=== PATIENT | female | born 1995 | race Caucasian/White ===

== ENCOUNTER → 2017-07-07 08:14 | Outpatient (CLI) | payer BC, SELFPAY | PROVIDERS: Nurse Practitioner Women's Health; Family Provider Family Medicine; PCP Family Medicine; Visit Provider Obstetrics & Gynecology | DX: Z83.2 Family history of diseases of the blood and blood-forming organs and certain disorders involving the immune mechanism (principal); Z82.49 Family history of ischemic heart disease and other diseases of the circulatory system | CPT/HCPCS: 36415; 81241 ==

== ENCOUNTER → 2017-08-22 08:03 | Outpatient (CLI) | payer BC, SELFPAY ==
--- NOTE | 2017-08-22 08:08 | US_ITS ---
STUDY: ULTRASOUND BREAST - RIGHT REASON FOR EXAM: Female, 21 years old. Palpable lump in the right axillary region. TECHNIQUE: Axial and longitudinal images of the RIGHT breast were performed with a high resolution ultrasound transducer. COMPARISON: None. FINDINGS: RIGHT Breast: The right axillary region was examined by ultrasound. Normal tissue is seen. 2 small benign-appearing lymph nodes are present. The larger measures 1.3 cm x 1.3 cm x 0.4 cm. US/Breast Limited Unilateral IMPRESSION: 2 small benign-appearing right axillary lymph nodes. ASSESSMENT CATEGORY: BIRADS Category 2: Benign. A letter regarding these results will be sent to the patient by the facility within 30 days. Electronically Signed: Miguel Ángel Shook MD at 12:16 EDT Tel [phone], Service support ,
== END ==
PROVIDERS: Family Provider Family Medicine; PCP Family Medicine; Visit Provider Surgery
DX: R22.31 Localized swelling, mass and lump, right upper limb (principal)
CPT/HCPCS: 76642

== ENCOUNTER → 2018-06-08 15:52 | Outpatient (CLI) | payer BC, SELFPAY ==
[2018-06-08 11:57] VITALS: BMI 30.7
[2018-06-08 19:05] LABS: Chlamydia Trachomatis by PCR Negative (Negative); Neisserai gonorrhoeae by PCR Negative (Negative); Probe Check PASS; Sample Adequacy Control PASS; Specimen Processing Control PASS
== END ==
PROVIDERS: Family Provider Family Medicine; PCP Family Medicine; Referring Provider Nurse Practitioner Women's Health; Visit Provider Nurse Practitioner Women's Health
DX: Z11.3 Encounter for screening for infections with a predominantly sexual mode of transmission (principal); N89.8 Other specified noninflammatory disorders of vagina
CPT/HCPCS: 87070; 87205; 87491; 87591

== ENCOUNTER 2018-06-11 06:42 | Day surgery (SDC) | payer BC, SELFPAY ==
[2018-04-17 09:18] VITALS: BMI 30.7
[2018-06-08 11:57] VITALS: BMI 30.7
--- NOTE | 2018-06-10 18:09 | PCM.HP.BLA ---
History and Physical Date of Admission: 06/11/18 HISTORY OF PRESENT ILLNESS 22 year old woman presents with a soft tissue mass on her right posterior axillary area/lateral chest wall that has increased in size over the last several months. She denies any trauma. She denies any recent infection. She has no trouble with range of motion of her right shoulder. She had a soft tissue mass excised in this area in the past about 10 years ago. It was a lipoma at that time according to the patient. She had an Ultrasound done in 08/20 which showed benign fatty tissue and benign appearing lymph nodes. She presents at this time for further evaluation and treatment. PAST MEDICAL HISTORY Anxiety and depression Seasonal allergies ocp use PAST SURGICAL HISTORY bilateral foot surgery ALLERGIES No Known Allergies MEDICATIONS norethindrone 1 mg-ethinyl estradiol citalopram FAMILY HISTORY Grandmother - Cancer Grandfather - Myocardial infarction Grandmother - DVT Mother - DVT SOCIAL HISTORY Smoking Status: Never smoker alcohol intake: current details: social substance use type: does not use caffeine: Yes REVIEW OF SYSTEMS General - Denies fever, fatigue, and weight loss. Eyes - Denies cataracts and glaucoma. ENT - Denies nasal congestion and sore throat. Endocrine - Denies excessive thirst and urination. Skin - Denies skin cancer. Has enlarging recurrent soft tissue mass right posterior axillary area/lateral chest wall. Musculoskeletal - Denies joint pain, joint stiffness, weakness of muscles and joints, back pain, and arthritis. Neuro - Denies headaches. Cardiovascular - Denies chest pain, fatigue, and shortness of breath with exertion. Psych - Denies anxiety and depression. Respiratory - Denies chronic cough and shortness of breath. Gastrointestinal - Denies nausea, vomiting, diarrhea, and constipation. Hematologic - Denies abnormal bruising and bleeding. Genitourinary - Denies hematuria and urinary frequency. PHYSICAL EXAMINATION General - Alert and Oriented. HEENT - PERRL. EOMI. Throat is clear. No suspicious lesions noted. Neck - Supple and nontender. No cervical adenopathy. No suspicious lesions noted. Chest wall - On the right lateral chest wall by the posterior axillary area is a soft tissue mass that has been excised before. It is mobile. Nontender. Measures 6 cm. Lungs - Clear to auscultation. Heart - Regular rate and rhythm. Abdomen - Soft and nondistended. Extremities - FROM. No axillary adenopathy. Radial pulses are palpable. On the right posterior axillary area/lateral chest wall is a soft tissue mass. It is mobile. It measures 6 cm. Nontender. There is no evidence of infection. Neuro - CN II-XII grossly intact. Psych - Normal mood and affect. ASSESSMENT 6 cm recurrent soft tissue mass right posterior axillary area/lateral chest wall. PLAN Ultrasound reviewed. Recommend excision of this recurrent enlarging soft tissue mass right posterior axillary area/lateral chest wall and send it to Pathology for analysis to rule out carcinoma. May need a drain postoperatively. Surgery will be done under general anesthesia on an outpatient basis. Patient was informed of the risks and complications of the procedure including alternatives to surgery. These were discussed with the patient personally. Patient voices understanding and wishes to proceed. Some of the risks and complications were included in a form from the [employer] [employer].
[2018-06-11 07:06] VITALS: BP 110/70; PULSE 60; RESP 16; TEMP 36.9; O2SAT 100; BMI 31.6
[2018-06-11 07:21] LABS: Internal QC Validated? YES +Cl - CLEAR BKGD; Pregnancy, Urine Negative Negative
--- NOTE | 2018-06-11 08:00 | MASS_PTH ---
PATIENT: ALLA UPTON LOC: [facility] [place] U#:[id number] AGE/SX: 22/F ROOM: RE06/11/[address]: Dr. Elvis Vivar MD : 1995 BED: DIS: 06/11/2018 SPEC #: [id number] RECD: 06/11/18 10:28 STATUS: SARAH HERMAN #: [id number] KADEN: 06/11/18 08:[address]: Elvis Vivar DEPT: SURGICAL PATHOLOGY RECD BY: Blake Leo ENTERED: 06/11/18 11:39 SP TYPE: Mass OTHR DR: Dr. Gorge Enciso MD Tissues: Chest wall, NOS Procedures: Surgery Specimen Level III HEADER OPERATION: Excision soft tissue mass, posterior axillary / lateral chest PRE-OP DIAGNOSIS: Recurrent soft tissue mass right posterior axillary area / lateral chest wall TISSUE SUBMITTED: Recurrent soft tissue mass right posterior axillary area / lateral chest wall MICROSCOPIC DIAGNOSIS Recurrent soft tissue mass right posterior axillary area/lateral chest wall, excision: Mature adipose tissue, consistent with lipoma. SJ:erin 06/12/18 MICROSCOPIC DESCRIPTION Slides are reviewed. GROSS DESCRIPTION Received in fixative is one container labeled with the patient's name and designated recurrent soft tissue mass right posterior axillary area. The specimen consists of multiple irregular fragments of lyon-yellow fibrofatty tissue that in aggregate measure 11 x 8 x 1.7 cm. The largest fragment contains an ellipse of light lyon unremarkable skin measuring 4.5 x 1.5 cm. Loaf Counter sections are submitted in three cassettes. / AM:erin 06/11/18 TC:1 CPT: 47062
[2018-06-11] MEDS: Cefazolin 2 GM in 0.9% Normal Saline 100 ML IV (08:15)
[2018-06-11] MEDS: Mupirocin Ointment 22gm Tube 1 APPLIC (09:00)
--- NOTE | 2018-06-11 09:19 | PCM.IMDPSTOP ---
Immediate Post-Op Note Date of Procedure: 06/11/18 Primary Surgeon/Physician: Elvis Vivar MD communications scientist: Ryanne Irizarry. Pre-Operative Diagnosis: 6 cm recurrent soft tissue mass right posterior axillary area/lateral chest wall. Post-Operative Diagnosis: Same. Surgery/Procedure Performed:: Excision 6 cm recurrent soft tissue mass right posterior axillary area/lateral chest wall with 7 cm layered closure. Description of Surgical Findings:: 22 year old woman presents with a soft tissue mass on her right posterior axillary area/lateral chest wall that has increased in size over the last several months. She denies any trauma. She denies any recent infection. She has no trouble with range of motion of her right shoulder. She had a soft tissue mass excised in this area in the past about 10 years ago. It was a lipoma at that time according to the patient. She had an Ultrasound done in 08/20 which showed benign fatty tissue and benign appearing lymph nodes. Today the patient underwent excision 6 cm recurrent soft tissue mass right posterior axillary area/lateral chest wall with 7 cm layered closure. I used Olegario absorbable hemostat. Reference Number - [id number]. Lot Number - [id number]. Expiration - December 30, 2022. Estimated Blood Loss: 25 ml. Specimen's removed: Recurrent soft tissue mass right posterior axillary area/lateral chest wall to Pathology. Drains: Akin. Type of Anesthesia:: General - Admit VTE Documentation VTE Present on Admission: No VTE Mechan Device Prophylaxis: SCD's VTE Pharm Prophylaxis ordered?: No
--- NOTE | 2018-06-11 09:23 | OP.PN_ITS ---
Immediate Post-Op Note Date of Procedure: 06/11/18 Primary Surgeon/Physician: Elvis Vivar MD take out waitress: Ryanne Irizarry. Pre-Operative Diagnosis: 6 cm recurrent soft tissue mass right posterior axillary area/lateral chest wall. Post-Operative Diagnosis: Same. Surgery/Procedure Performed:: Excision 6 cm recurrent soft tissue mass right posterior axillary area/lateral chest wall with 7 cm layered closure. Description of Surgical Findings:: 22 year old woman presents with a soft tissue mass on her right posterior axillary area/lateral chest wall that has increased in size over the last several months. She denies any trauma. She denies any recent infection. She has no trouble with range of motion of her right shoulder. She had a soft tissue mass excised in this area in the past about 10 years ago. It was a lipoma at that time according to the patient. She had an Ultrasound done in 08/20 which showed benign fatty tissue and benign appearing lymph nodes. Today the patient underwent excision 6 cm recurrent soft tissue mass right posterior axillary area/lateral chest wall with 7 cm layered closure. I used Olegario absorbable hemostat. Reference Number - [id number]. Lot Number - [id number]. Expiration - December 30, 2022. Estimated Blood Loss: 25 ml. Specimen's removed: Recurrent soft tissue mass right posterior axillary area/lateral chest wall to Pathology. Drains: Akin. Type of Anesthesia:: General - Admit VTE Documentation VTE Present on Admission: No VTE Mechan Device Prophylaxis: SCD's VTE Pharm Prophylaxis ordered?: No
--- NOTE | 2018-06-11 09:30 | PCM.DC ---
You will use the following diet at home:: No restrictions Discharge Activity: May not drive while taking narcotic pain medications., May Not Shower - until the drain is removed in the office., - - elevate right arm. no heavy lifting. Return to work on:: 06/15/18 - tentative May shower in (days): 10 - after the drain is removed. Weight Bearing Status: Weight bearing as tolerated Lifting Restrictions: 20 lbs. Keep extremity elevated above heart level: Right Arm Call your doctor if your incision/area has: Continuous Slow Oozing, Sudden Increased Bleeding, Increased Pain/ Swelling, Increased Redness, Foul Smelling Discharge, Swelling at the incision site Call your doctor if you observe: Fever of 101 or Higher, Coldness, Increased Pain, Shortness of breath, Chest pain, Calf discomfort, Uncontrolled pain Suture Line Care: - - apply antibiotic ointment to suture line daily. Change Dressing in (Days):: 2 - dry dressing daily followed by saud wrap. Cleanse incision/area with: - - may get incision wet in the shower until the drain is removed in the office. Drain: Suction - paulo drain to bulb suction. empty and record output daily. Allergies/Adverse Reactions: Allergies No Known Allergies Allergy (Verified 06/08/18 11:55) Medications to take at Discharge etonogestrel 68 mg subdermal implant 1 implant SUBDERMAL ONCE 05/13/18 Citalopram [Celexa] 20 mg PO DAILY 06/04/18 metronidazole 500 mg tablet 500 mg PO BID #14 tab 06/09/18 Diazepam [Valium] 5 mg PO BID #10 tab 06/11/18 Doxycycline [Vibramycin] 100 mg PO BID #20 cap 06/11/18 Oxycodone HCl/Acetaminophen [Percocet 5/325] 1 tab PO Q4H PRN PRN 7 Days #40 tab 06/11/18 The following prescriptions were given: Oxycodone HCl/Acetaminophen [Percocet 5/325] 1 tab PO Q4H PRN PRN 7 Days #40 tab PRN Reason: Pain Diazepam [Valium] 5 mg PO BID #10 tab Doxycycline [Vibramycin] 100 mg PO BID #20 cap Primary Care Physician: Gorge Enciso MD [Primary Care Provider] - Test Results: Test results from this visit will be discussed in further detail at your follow-up appointment, if applicable. Please Follow Up With: Elvis Vivar MD When: one week. call [phone] for appt. Proposed Discharge Date: 06/11/18
--- NOTE | 2018-06-11 09:34 | DCINST_ITS ---
You will use the following diet at home:: No restrictions Discharge Activity: May not drive while taking narcotic pain medications., May Not Shower - until the drain is removed in the office., - - elevate right arm. no heavy lifting. Return to work on:: 06/15/18 - tentative May shower in (days): 10 - after the drain is removed. Weight Bearing Status: Weight bearing as tolerated Lifting Restrictions: 20 lbs. Keep extremity elevated above heart level: Right Arm Call your doctor if your incision/area has: Continuous Slow Oozing, Sudden Increased Bleeding, Increased Pain/ Swelling, Increased Redness, Foul Smelling Discharge, Swelling at the incision site Call your doctor if you observe: Fever of 101 or Higher, Coldness, Increased Pain, Shortness of breath, Chest pain, Calf discomfort, Uncontrolled pain Suture Line Care: - - apply antibiotic ointment to suture line daily. Change Dressing in (Days):: 2 - dry dressing daily followed by saud wrap. Cleanse incision/area with: - - may get incision wet in the shower until the drain is removed in the office. Drain: Suction - paulo drain to bulb suction. empty and record output daily. Allergies/Adverse Reactions: Allergies No Known Allergies Allergy (Verified 06/08/18 11:55) Medications to take at Discharge etonogestrel 68 mg subdermal implant 1 implant SUBDERMAL ONCE 05/13/18 Citalopram [Celexa] 20 mg PO DAILY 06/04/18 metronidazole 500 mg tablet 500 mg PO BID #14 tab 06/09/18 Diazepam [Valium] 5 mg PO BID #10 tab 06/11/18 Doxycycline [Vibramycin] 100 mg PO BID #20 cap 06/11/18 Oxycodone HCl/Acetaminophen [Percocet 5/325] 1 tab PO Q4H PRN PRN 7 Days #40 tab 06/11/18 The following prescriptions were given: Oxycodone HCl/Acetaminophen [Percocet 5/325] 1 tab PO Q4H PRN PRN 7 Days #40 tab PRN Reason: Pain Diazepam [Valium] 5 mg PO BID #10 tab Doxycycline [Vibramycin] 100 mg PO BID #20 cap Primary Care Physician: Gorge Enciso MD [Primary Care Provider] - Test Results: Test results from this visit will be discussed in further detail at your follow- up appointment, if applicable. Please Follow Up With: Elvis Vivar MD When: one week. call [phone] for appt. Proposed Discharge Date: 06/11/18
[2018-06-11 09:48] VITALS: BP 108/70; BP 110/70; PULSE 84; RESP 16; TEMP 36.4; O2SAT 95
[2018-06-11 10:00] VITALS: BP 106/69; BP 110/70; PULSE 80; RESP 16; O2SAT 97
[2018-06-11 10:15] VITALS: BP 110/70; BP 110/77; PULSE 60; RESP 16; O2SAT 97
[2018-06-11 10:30] VITALS: BP 110/70; BP 113/89; PULSE 55; RESP 16; TEMP 36.5; O2SAT 96
[2018-06-11 11:58] VITALS: BP 110/58; BP 110/70; PULSE 68; RESP 16; TEMP 36.8; O2SAT 100
--- NOTE | 2018-06-11 14:19 | PCM.OPRPT ---
Report of Operation Date of Procedure: 06/11/18 Pre-Operative Diagnosis: 6 cm recurrent soft tissue mass right posterior axillary area/lateral chest wall. Post-Operative Diagnosis: Same. Surgery/Procedure Performed:: Excision 6 cm recurrent soft tissue mass right posterior axillary area/lateral chest wall with 7 cm layered closure. Description of Surgical Findings:: 22 year old woman presents with a soft tissue mass on her right posterior axillary area/lateral chest wall that has increased in size over the last several months. She denies any trauma. She denies any recent infection. She has no trouble with range of motion of her right shoulder. She had a soft tissue mass excised in this area in the past about 10 years ago. It was a lipoma at that time according to the patient. She had an Ultrasound done in 08/20 which showed benign fatty tissue and benign appearing lymph nodes. Patient was informed of the risks and complications of the procedure including alternatives to surgery. These were discussed with the patient personally. Patient voices understanding and wishes to proceed. Some of the risks and complications were included in a form from the [employer] [place] [employer] [employer]. I used Olegario absorbable hemostat. Reference Number - [id number]. Lot Number - [id number]. Expiration - December 30, 2022. hemp fiber taker off: Ryanne Irizarry. Type of Anesthesia:: General Specimen's removed: Recurrent soft tissue mass right posterior axillary area/lateral chest wall to Pathology. Drains: Akin. Estimated Blood Loss (mL): 25 ml. Description of Procedure: Patient was taken to OR in supine position and was placed under general anesthesia. The right axillary and lateral chest wall areas were prepped and draped in the usual fashion. SCD's were placed for DVT prophylaxis. Perioperative antibiotics were given intravenously. Using Xylocaine with epinephrine, the previous scar in the axilla was infiltrated. After waiting 5 minutes for the anesthetic to take effect, I excised an ellipse of skin around the previous scar down into the subcutaneous tissue. A lot of scar tissue was present. Some of it was close to the surrounding skin. I dissected the soft tissue mass including the surrounding scar tissue down to the pectoralis major muscle anteriorly and the latissimus dorsi muscle posteriorly. The soft tissue mass was sent to Pathology for analysis to rule out carcinoma. The wound was irrigated with saline. Hemostasis was obtained with electrocautery. Due to the large cavity after the excision of the soft tissue mass, I placed a size 15 Akin drain through a separate stab incision inferiorly and secured to the skin with 3-0 Nylon suture. The wound was then sprayed with Olegario absorbable hemostat to minimize seroma formation. The wound was then closed in multiple layers with 3-0 Monocryl figure of eight interrupted sutures for the deep subcutaneous tissue to try and minimize some of the space. The deep dermis and subcutaneous tissue was approximated with 3-0 Monocryl interrupted sutures. The skin was approximated with 4-0 Prolene vertical mattress and simple interrupted sutures. Antibiotic ointment was applied to the suture line. There was a small abrasion inferiorly that was also covered with antibiotic ointment. It was probably related to thermal injury from the cautery of bleeding tissue after the scar tissue was excised since some of the scar tissue was close to the skin when the cauterization occurred. Measures about 0.3 cm. Will observe during the postop period. The length of the layered closure was 7 cm. Gauze dressing was applied followed by a compression DEBO wrap. Patient tolerated the procedure well and was sent to PACU in satisfactory condition. Patient will be sent home on antibiotics and pain medication. She will keep her right arm elevated during the initial postop period. She will have a lifting restriction. Patient will followup in a week for a wound check and for discussion of the pathology report. The sutures will be removed in two weeks. The drain will be removed in 1-2 weeks. Grafts/Implants Used: None. - Complications None. - Admit VTE Documentation VTE Present on Admission: No VTE Mechan Device Prophylaxis: SCD's VTE Pharm Prophylaxis ordered?: No Code Visit Surgery Charges CPT - 60015 ICD-10 - R22.2, R22.30
== END 2018-06-11 12:16 | disposition home or self-care (01) ==
LOC: SDC 06:43 → AC 06:44
PROVIDERS: Anesthesiology; Family Provider Family Medicine; PCP Family Medicine; Referring Provider Surgery; Visit Provider Surgery
PROC: (CPT 21552; principal; 2018-06-11 07:45)
DX: R22.31 Localized swelling, mass and lump, right upper limb (principal); F32.9 Major depressive disorder, single episode, unspecified; F41.9 Anxiety disorder, unspecified; Z79.3 Long term (current) use of hormonal contraceptives; Z79.899 Other long term (current) drug therapy
CPT/HCPCS: 21552; 81025; 88304; 88305; J7120; J2405

== ENCOUNTER 2023-01-06 13:59 | Emergency (ER) | payer OTHER, SELFPAY ==
[2023-01-06 14:00] VITALS: BP 118/79; PULSE 66; RESP 18; TEMP 36.2; O2SAT 100; BMI 32.5
--- NOTE | 2023-01-06 14:13 | EDS_ITS ---
<Statement entered by Fatuma Hurst MD - 01/06/23 19:23> I have personally performed a face to face assessment of the patient and have reviewed the SAURAV Note. Patient presents secondary to right fifth toe injury. Patient states that she accidentally kicked some steel toed boots that were sitting at her home. Patient sitting upright in bed no acute distress. Head neck examination unremarkable. Heart is regular rate and rhythm. Lung sounds are clear. Right lower extremity examination reveals tenderness and mild edema to the right fifth toe. Good cap refill noted. Toe x-ray per my interpretation reveals avulsion fracture with displacement of the distal toe. Digital block performed until reduced and tammi taped. Repeat x-rays reveal good alignment. Radiology interpretation on both studies is reviewed. HPI History of Present Illness Chief Complaint: Lower Extremity Injury Narrative Narrative: Patient presenting today with pain to her right fifth toe that she has had since this afternoon when she was walking through her house and accidentally kicked a pair of steel toe boots. She denies any other injury. She is able to ambulate although it is painful. [facility] Medical History Anxiety and depression Influenza A ocp use Seasonal allergies Home Medications Copper IUD intrauterine 09/30/22 [History Last Taken Unknown] dexamethasone 6 mg tablet 6 mg PO DAILY #5 tabs 09/30/22 [Rx Last Taken Unknown] Allergy/AdvReac Type Severity Reaction Status Date / Time No Known Allergies Allergy Verified 01/06/23 14:00 Family History Grandmother Cancer Grandfather Myocardial infarction Grandmother DVT Mother DVT Surgical History bilateral foot surgery Social History Smoking Status: Never smoker alcohol intake: current details: social substance use type: does not use caffeine: Yes what type of physical activity do you participate in: none seatbelt use: always do you feel safe at home: Yes 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[facility] ROS ROS ED Constitutional Constitutional ED: Denies chills or fever(s) Cardiovascular Cardiovascular: Denies chest pain Respiratory/Chest Respiratory/Chest: Denies cough or dyspnea Gastrointestinal Gastrointestinal: Denies abdominal pain, nausea or vomiting Musculoskeletal Musculoskeletal: Reports arthralgias; Denies myalgias Integumentary Denies Abrasions Neurologic Neurologic: Denies paresthesias or weakness EXAM Physical Exam Const Vital Signs: 01/06/23 14:00 Temperature 97.1 F L Temperature Source Temporal Pulse Rate 66 Respiratory Rate 18 Blood Pressure 118/79 Blood Pressure Mean 92 Pulse Ox 100 Oxygen Delivery Method Room Air Positive well nourished, well developed and no apparent distress General Appearance ED: well developed HEENT Reports normocephalic and head/scalp atraumatic Mouth ED: Yes moist mucous membranes normal Eyes PERRL and EOMs intact bilaterally Neck full ROM and supple Chest Wall inspection of chest normal Resp normal respiratory effort and clear to auscultation bilaterally Cardio regular rate and regular rhythm GI soft to palpation, non-tender, non-distended and no masses Back/Spine normal ROM and normal to inspection Extremity Extremity Narrative: Lateral deviation of the right fifth toe, limited range of motion to the right fifth toe due to pain. DP pulse 2+ and equal bilaterally, good capillary refill, sensation intact. Neuro oriented x3, CN's II-XII intact bilaterally, moves all extremities, no focal motor deficits and no sensory deficits noted Sensorium / Orientation: awake and alert Psych mental status grossly normal and thought process normal Skin no rashes or lesions noted and no wounds MDM MDM MDM Narrative Medical decision making narrative: Patient presenting today with pain to her right fifth toe after kicking a pair of steel toed boots today. She does have lateral deviation of this toe with pain to palpation. X-ray will be obtained to rule out fracture/ dislocation. She has been given ibuprofen for pain. X-ray does show intra-articular displaced fracture of the middle phalanx of the fifth toe. Digital block was performed to the toe with 1% lidocaine, the toe was manually reduced and taped to the fourth toe. Postreduction x-ray performed and shows improved alignment. She has been given a referral for podiatry, I did offer to give her a walking boot/Aircast but patient declines. She will be discharged home in stable condition with rice instructions and is to alternate Tylenol and ibuprofen for pain as needed. She is comfortable with plan. Radiography X-Ray: Read by ED Physician and Read by Radiologist Diagnostic Testing: Clinical Impression(s) from Imaging Studies Toe X-Ray 01/06/23 14:20 IMPRESSION: Intra-articular displaced fracture of the middle phalanx of the fifth toe. Electronically Signed: Jeffry Samaniego MD at 15:30 EDT , Toe X-Ray 01/06/23 15:29 IMPRESSION: 1. Reduced subluxation of the interphalangeal joint of the fifth toe. 2. Improved alignment and position of the intra-articular fracture. Electronically Signed: Jeffry Samaniego MD at 16:03 EDT , Discharge Plan Triage Chief Complaint: Lower Extremity Injury ED Midlevel Provider: Joyce Hannah ED Provider: Fatuma Hurst Dx/Rx/DC Orders Clinical Impression: Fracture of toe of right foot Instructions: ED Fracture, Toe, Closed Prescriptions: No Action Copper IUD intrauterine dexamethasone 6 mg tablet 6 mg PO DAILY Qty: 5 0RF Primary Care Provider: Gorge Enciso Referrals: Ron Alvarenga DPM [Med Staff - Active Staff] - 5-7 Days Gorge Enciso MD [Primary Care Provider] - Activity Restrictions/Additional Instructions: Ice your toe several times a day for the next few days, you can keep your foot elevated when you can to help with swelling. Alternate Tylenol and ibuprofen for your pain. Follow-up with podiatry. Disposition Disposition: Home, Self Care Discharge Date/Time: 01/06/23 15:50
--- NOTE | 2023-01-06 14:20 | RAD_ITS ---
INDICATION: fifth toe pain EXAMINATION/TECHNIQUE: X-RAY - RIGHT FOOT XR Toes Min 2 Views 3 VIEWS COMPARISON: Prior exam of 12/31/2016. FINDINGS: SOFT TISSUES: No soft tissue swelling or gas. No radiopaque foreign body. BONES/JOINTS: Intra-articular displaced fracture of the base of the middle phalanx of the fifth toe. The remainder of the osseous structures appear intact. Normal alignment. Preservation of the joint space.. No sclerotic or destructive changes observed. RAD/Toe(s) Min 2 Views IMPRESSION: Intra-articular displaced fracture of the middle phalanx of the fifth toe. Electronically Signed: Jeffry Samaniego MD at 15:30 EDT ,
[2023-01-06] MEDS: Ibuprofen 200 MG Tablet 400 MG PO (14:28)
[2023-01-06] MEDS: Lidocaine 1% (20 ml mdv) 20 ML Vial INFILT (14:31)
--- NOTE | 2023-01-06 15:29 | RAD_ITS ---
INDICATION: 5th toe reduction EXAMINATION/TECHNIQUE: X-RAY - RIGHT FOOT XR Toes Min 2 Views 3 VIEWS COMPARISON: Previous of the same date done earlier FINDINGS: SOFT TISSUES: No soft tissue swelling or gas. No radiopaque foreign body. BONES/JOINTS: Improved alignment and position of the previously noted intra-articular fracture of the base of the middle phalanx of the fifth toe. Reduced subluxation of the interphalangeal joint. The remainder of the osseous structures appear intact. Preservation of the joint space.. No sclerotic or destructive changes observed. RAD/Toe(s) Min 2 Views IMPRESSION: 1. Reduced subluxation of the interphalangeal joint of the fifth toe. 2. Improved alignment and position of the intra-articular fracture. Electronically Signed: Jeffry Samaniego MD at 16:03 EDT ,
== END 2023-01-06 15:50 | disposition home or self-care (01) ==
PROVIDERS: Emergency Provider Emergency Medicine; PCP Family Medicine; Visit Provider Emergency Medicine
DX: S92.501A Displaced unspecified fracture of right lesser toe(s), initial encounter for closed fracture (principal); X58.XXXA Exposure to other specified factors, initial encounter
CPT/HCPCS: 73660; 99283

== ENCOUNTER → 2023-02-20 | Outpatient (CLI) | payer OTHER, SELFPAY ==
[2023-02-20 17:43] LABS: Absolute Lymphocyte Count 2.34 X10^3/uL (0.83-4.51); Absolute Neutrophil Count 3.9 X10^3/uL (2.0-7.7); Basophil# 0.03 X10^3/uL; Basophil% 0.4 % (0-1); Eosinophil# 0.04 X10^3/uL; Eosinophils% 0.6 % (0-5); Hematocrit 43.7 % (37-47); Hemoglobin 13.6 g/dL (12.0-15.0); Lymphocyte # 2.34 X10^3/ul (0.83-4.51); Lymphocyte % 34.6 % (19-41); Mean Corp Hgb Conc 31.1 g/dL (32-36); Mean Corpuscular Hgb 27.1 pg (27.0-32.0); Mean Corpuscular Volume 87.2 fL (81-99); Mean Platelet Vol. 9.9 fl (6.2-12.0); Monocyte# 0.41 X10^3/uL; Monocyte% 6.1 % (0-10); NRBC Flagged by Analyzer 0 % (0-5); Neutrophil # 3.92 X10^3/uL (2.7-7.7); Platelet Count 228 K/mm3 (150-450); RBC Distribution Width CV 13.3 % (11.6-14.6); RBC Distribution Width SD 42.1 fl (35.1-43.9); Red Blood Count 5.01 M/mm3 (4.2-5.4); White Blood Count 6.8 K/mm3 (4.4-11.0)
[2023-02-20 18:13] LABS: Anion Gap 4 (5-15); BUN 19 mg/dL (7-18); BUN/Creat Ratio 24.3 RATIO (10-20); Calcium,Total 9.1 mg/dL (8.5-10.1); Chloride 107 mmol/L (98-107); Cholesterol 193 mg/dL (200); Creatinine, Serum 0.78 mg/dL (0.55-1.02); EST Glomerular Filtration Rate 92 mL/min (>60); Est Glom Filt Rate - Afr Amer 112 mL/min (>60); Glucose 86 mg/dL (74-106); High Density Lipoprotein 74 mg/dL; Potassium 3.8 mmol/L (3.5-5.1); Sodium Level 137 mmol/L (136-145); Triglycerides 90 mg/dL; Very Low Density Lipoprotein 18 mg/dL (5-40)
[2023-02-20 18:32] LABS: D-Dimer Quantitative (DVT/PE) 0.51 FEU/ug/m (0.27-0.49)
== END | disposition home or self-care (01) ==
LOC: MTLAB 16:26
PROVIDERS: PCP Family Medicine; Referring Provider Family Medicine; Visit Provider Family Medicine
DX: R07.9 Chest pain, unspecified (principal)
CPT/HCPCS: 36415; 80048; 80061; 85025; 85379

== ENCOUNTER → 2023-02-21 | Outpatient (CLI) | payer OTHER, SELFPAY ==
--- NOTE | 2023-02-21 09:58 | CT_ITS ---
STUDY: CTA CHEST REASON FOR EXAM: Female, 27 years old. Elevated D- DImer RADIATION DOSAGE (If Supplied By Facility): CTDIvol = ( 13.04 ) mGy, DLP = ( 478.68 ) mGycm TECHNIQUE: The examination was performed with the intravenous administration of IV 100mL Isovue-[id number]. Post-processing of the angiographic images was performed, with multiplanar reformation and 3D reconstruction. Individualized dose optimization techniques were used for this CT. COMPARISON: No relevant prior comparison study available FINDINGS: Normal enhancement of the main pulmonary artery and right and left pulmonary arteries. Normal enhancement of the bilateral peripheral pulmonary arteries. There is no demonstrated pulmonary embolism. Normal thoracic aorta and visualized great vessels. There is no demonstrated aortic dissection. Normal heart and pericardium. Normal mediastinum. Normal hilar regions. Normal visualized trachea and bronchi. The lungs are well expanded. Normal pulmonary parenchyma. Normal pleura. Normal chest wall structures. Normal osseous structures. Normal visualized upper abdomen. CT/CTA Chest W/WO Contrast IMPRESSION: 1. No evidence of pulmonary embolism or aortic dissection. 2. No mass, adenopathy or acute pulmonary infiltrates. Electronically Signed: Jeffry Samaniego MD at 11:16 EDT ,
== END | disposition home or self-care (01) ==
LOC: CT 09:57
PROVIDERS: PCP Family Medicine; Referring Provider Family Medicine; Visit Provider Family Medicine
DX: R07.9 Chest pain, unspecified (principal)
CPT/HCPCS: 71275; Q9967